=== PATIENT | female | born 1995 ===

== ENCOUNTER 2018-02-01 17:25 | Inpatient (IN) ==
[2018-02-01] MEDS ORDERED: IOPAMIDOL 100 ML BOTTLE IV ONE (17:26)
[2018-02-01] MEDS ORDERED: KETOROLAC 30 MG/ML VIAL IV ONE (17:47)
[2018-02-01] MEDS ORDERED: 0.9 % SODIUM CHLORIDE 1,000 ML IV ONE (17:47)
[2018-02-01] MEDS ORDERED: ONDANSETRON 4 MG/2 ML VIAL IV ONE ×2 (17:47→21:50)
[2018-02-01] MEDS ORDERED: 0.9 % SODIUM CHLORIDE 2,000 ML IV ONE (18:07)
[2018-02-01] MEDS ORDERED: PANTOPRAZOLE 40 MG VIAL IV ONE (18:07)
[2018-02-01] MEDS ORDERED: traMADol 50 MG TABLET PO ONE (18:34)
[2018-02-01 19:12] LABS: Basophils # (Auto) 0 K/mcL (0.0-0.3); Basophils % (Auto) 0 % (0.0-2.0); Eosinophils # (Auto) 0 K/mcL (0.0-0.7); Eosinophils % (Auto) 0 % (0.0-7.0); Granulocytes % (Auto) 90.9 % (38.0-78.0); Lymphocytes # (Auto) 0.8 K/mcL (1.5-4.8); Lymphocytes % (Auto) 7.5 % (15.5-49.0); Mean Corpuscular HGB Conc 33.7 g/dL (31.0-36.0); Mean Corpuscular Hemoglobin 30.3 pg (26.0-34.0); Monocytes # (Auto) 0.2 K/mcL (0.1-0.9); Monocytes % (Auto) 1.6 % (1.0-12.0); Platelet Count 373 K/mcL (140-440); Red Cell Distribution Width 12.2 % (11.5-14.5)
[2018-02-01 19:29] LABS: ALT/SGPT 38 U/l (0-40); Albumin 4.7 gm/dL (3.2-5.2); Albumin/Globulin Ratio 1.4 (1.0-2.3); Alkaline Phosphatase 78 U/L (39-117); Amylase 17 U/L (28-100); Blood Urea Nitrogen 6 mg/dl (6-20); Lipase 13 U/L (7-60)
--- NOTE | 2018-02-01 19:53 | Emergency Department Note ---
Abdominal Pain HPI - General Chief Complaint: Abdominal Pain Stated Complaint: Back/abd pain Time Seen by Provider: 02/01/18 17:46 Source: patient, family Mode of arrival: ambulatory Limitations: no limitations - History of Present Illness HPI Narrative: 22-year-old female comes in for low back pain nausea and vomiting that started this morning. Unable to hold anything down. She did start her menses 6 days ago and is on the tail end of that but she continues to bleed a little bit per vagina. She is not taking any medicines. She is unable to sleep secondary to the pain. Having chills decreased urine but no diarrhea or shortness of breath . - Related Data Home Medications Medication Instructions Recorded Confirmed No Known Home Meds 02/01/18 02/01/18 Allergies Allergy/AdvReac Type Severity Reaction Status Date / Time No Known Drug Allergies Allergy Verified 02/01/18 17:26 Review of Systems All systems ED: reviewed and negative except as stated. Abdominal Pain PMH - Past Medical History Attestation: Yes: The following information was validated with the patient. Medical history: Reports: no medical history Surgical history ED: Reports: no surgical history - Social History Smoking status: Never smoker Physical Exam Distraught anxious female tearful over her back pain. Normocephalic atraumatic. Conjunctive are clear sclerae nonicteric. No nasal discharge or congestion. Oropharynx pink and moist. Neck is supple without lymphadenopathy or thyromegaly. Heart is regular rate and rhythm no murmur appreciated. Lungs are clear to auscultation bilaterally without wheezes rales rhonchi or respiratory distress. Abdomen mildly distended with diffuse gross tenderness along with bilateral flank tenderness. Worse with sitting up. No pedal edema. +2 radial pulse. Alert and oriented Limitations: no limitations Course Vital Signs Temperature 96.8 F L 02/01/18 17:26 Pulse Rate 138 H 02/01/18 17:26 Respiratory Rate 20 02/01/18 17:26 Blood Pressure 150/91 02/01/18 17:26 Pulse Oximetry (%) 98 02/01/18 17:26 Temperature 96.8 F L 02/01/18 17:26 Pulse Rate 159 H 02/01/18 20:51 Respiratory Rate 16 02/01/18 20:15 Blood Pressure 135/100 02/01/18 20:51 Pulse Oximetry (%) 95 02/01/18 20:51 Abdominal Pain - Lab Data Lab results reviewed: Yes I reviewed the patient's lab results. Result diagrams: 02/01/18 18:25 02/01/18 18:25 Lab Results 02/01/18 02/01/18 02/01/18 Range/Units 18:25 18:25 18:25 WBC 10.2 (4.5-11.0) K/mcL RBC 4.80 (4.00-5.20) M/mcL Hgb 14.6 (12.0-15.0) g/dL Hct 43.2 (36.0-48.0) % POC Hct 44.0 (36.0-48.0) % MCV 90.0 (80.0-100.0) fL MCH 30.3 (26.0-34.0) pg MCHC 33.7 (31.0-36.0) g/dL RDW 12.2 (11.5-14.5) % Plt Count 373 (140-440) K/mcL MPV 9.3 (7.4-10.4) fL Gran % 90.9 H (38.0-78.0) % Lymph % (Auto) 7.5 L (15.5-49.0) % [place] % (Auto) 1.6 (1.0-12.0) % Eos % (Auto) 0 (0.0-7.0) % Baso % (Auto) 0 (0.0-2.0) % Gran # 9.3 H (1.8-8.0) K/mcL Lymph # (Auto) 0.8 L (1.5-4.8) K/mcL [place] # (Auto) 0.2 (0.1-0.9) K/mcL Eos # (Auto) 0 (0.0-0.7) K/mcL Baso # (Auto) 0 (0.0-0.3) K/mcL VBG Lactic Acid 2.3 H (0.5-2.2) mmol/L POC Sodium 140 (133-145) mmol/L Sodium 137 (133-145) mmol/L POC Potassium 3.8 (3.3-5.1) mmol/L Potassium 3.9 (3.3-5.1) mmol/L POC Chloride 103 (96-108) mmol/L Chloride 101 (96-108) mmol/L Carbon Dioxide 20 L (22-30) mmol/L POC Total CO2 22 (22-30) mmol/L Anion Gap 16.0 (8-16) POC BUN 5 L (6-20) mg/dl BUN 6 (6-20) mg/dl Creatinine 0.6 (0.6-1.1) mg/dl POC Creatinine 0.5 L (0.6-1.1) mg/dl GFR Calculation 130 Glucose 151 H (70-105) mg/dL POC Glucose 152 H (70-105) mg/dL Calcium 9.3 (8.6-10.4) mg/dl POC WB Ioniz Calcium 1.16 (1.16-1.32) mmol/L Total Bilirubin 0.6 (0.0-1.0) mg/dL AST 21 (0-37) U/l ALT 38 (0-40) U/l Alkaline Phosphatase 78 (39-117) U/L Total Protein 8.0 (5.9-8.4) gm/dL Albumin 4.7 (3.2-5.2) gm/dL Globulin 3.3 (2.2-3.7) gm/dL Albumin/Globulin Ratio 1.4 (1.0-2.3) Amylase 17 L (28-100) U/L Lipase 13 (7-60) U/L Urinalysis [id number] dipstick shows large amount of blood specific gravity 1.030- hCG - Radiology Data Radiology results reviewed: Yes I reviewed the patient's radiology results. 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 with associated gigantic cystic structures taking up most of her abdominal cavity pushing on the other structures Disposition Pt seen by CLINICAL DATA PROGRAMMER/PA only: No Clinical Impression: Ovarian neoplasm, Dehydration Ovarian cyst Qualifiers: Laterality: left Qualified Code(s): N83.202 - Unspecified ovarian cyst, left side Nausea and vomiting Qualifiers: Vomiting type: unspecified Vomiting Intractability: non-intractable Qualified Code(s): R11.2 - Nausea with vomiting, unspecified Summary: Initially treated with Toradol IV fluids and Zofran but this was an inadequate for pain control so we gave her a little bit of tramadol. The tramadol did not help either. So we gave her IV morphine which did provide some relief. Workup was ordered with laboratory as well as CT scan of the abdomen and pelvis CT scan of the abdomen pelvis showed ovarian cyst and neoplasm concerning for malignancy-I discussed this with Dr. Giovany Maldonado radiologist as well as Dr. Hung Meadows HISTOLOGY SUPERVISOR. Dr. Meadows will come in to see the patient She continued to have worsening pain so we gave her Dilaudid Dr. Meadows will take the patient back to the operating room, decide disposition from there depending on what they find in surgery. She will be consented for abdominal mass removal Disposition: Xfer As Outpt/Obs ([facility]) Condition: Serious Referrals: No,PCP [Primary Care Provider] -
[2018-02-01] MEDS ORDERED: HYDROmorphone 2 MG/ML VIAL IV PRN ×2 (20:19→23:09)
[2018-02-01] MEDS ORDERED: IPRATROPIUM/ALBUTEROL 3 ML AMPUL.NEB NEB ONE ×2 (21:43→21:47)
[2018-02-01] MEDS ORDERED: DEXAMETHASONE 10 MG/ML VIAL IV ONE (21:50)
[2018-02-01] MEDS ORDERED: PHENYLEPHRINE 10 MG/ML VIAL IV ONE (21:50)
[2018-02-01] MEDS ORDERED: PROPOFOL 200 MG/20 ML VIAL IV ONE (21:50)
[2018-02-01] MEDS ORDERED: ROCURONIUM 10 MG/ML ML IV ONE (21:50)
[2018-02-01] MEDS ORDERED: MIDAZOLAM 5 MG/5 ML VIAL IV ONE (21:50)
[2018-02-01] MEDS ORDERED: GLYCOPYRROLATE 0.2 MG/ML VIAL IV ONE (21:50)
[2018-02-01] MEDS ORDERED: SUCCINYLCHOLINE 20 MG/ML ML IV ONE (21:50)
[2018-02-01] MEDS ORDERED: fentaNYL 250 MCG/5 ML VIAL IV ONE (21:50)
[2018-02-01] MEDS ORDERED: LIDOCAINE HCL/PF 100 MG/5 ML SYRINGE IV ONE (21:50)
[2018-02-01] MEDS ORDERED: NEOSTIGMINE 1 MG/ML VIAL IV ONE (21:50)
[2018-02-01] MEDS ORDERED: BUPIVACAINE 0.25% 50 ML VIAL IJ ONE (22:00)
[2018-02-01] MEDS ORDERED: METHOCARBAMOL 1,000 MG/10 ML VIAL IV PRN (23:09)
[2018-02-01] MEDS ORDERED: PROMETHAZINE 25 MG/ML VIAL IV PRN (23:09)
[2018-02-01] MEDS ORDERED: FLUMAZENIL 0.1 MG/ML ML IV PRN (23:09)
[2018-02-01] MEDS ORDERED: PROMETHAZINE 25 MG/ML VIAL IM PRN (23:09)
[2018-02-01] MEDS ORDERED: diphenhydrAMINE 50 MG/ML VIAL IV PRN (23:09)
[2018-02-01] MEDS ORDERED: ONDANSETRON 4 MG/2 ML VIAL IV PRN (23:09)
[2018-02-01] MEDS ORDERED: MEPERIDINE 50 MG/ML INJECTION IM PRN (23:09)
[2018-02-01] MEDS ORDERED: fentaNYL 100 MCG/2 ML VIAL IV PRN (23:09)
[2018-02-01] MEDS ORDERED: METOPROLOL TARTRATE 5 MG/5 ML VIAL IV PRN (23:09)
[2018-02-01] MEDS ORDERED: NALOXONE HCL 0.4 MG/ML VIAL IV PRN (23:09)
[2018-02-01] MEDS ORDERED: IPRATROPIUM/ALBUTEROL 3 ML AMPUL.NEB NEB PRN (23:09)
[2018-02-01] MEDS ORDERED: ATROPINE SULFATE 0.4 MG/ML VIAL IV PRN (23:09)
[2018-02-01] MEDS ORDERED: ACETAMINOPHEN 1,000 MG/100 ML BOTTLE IV ONE (23:09)
[2018-02-01] MEDS ORDERED: ePHEDrine 50 MG/ML AMPUL IV PRN (23:09)
[2018-02-01] MEDS ORDERED: LACTATED RINGERS 1,000 ML IV SCH (23:15)
[2018-02-02] MEDS ORDERED: HYDROCODONE/APAP 7.5/325MG TABLET PO PRN (01:16)
[2018-02-02] MEDS ORDERED: fentaNYL 100 MCG/2 ML VIAL IV PRN ×2 (01:17→02:37)
[2018-02-02] MEDS: MEPERIDINE 25 MG/ML SYRINGE IV PRN ×2 (01:50→02:01)
[2018-02-02] MEDS ORDERED: MEPERIDINE 50 MG/ML INJECTION ONE (01:56)
[2018-02-02] MEDS: LACTATED RINGERS 1,000 ML IV SCH ×3 (02:15→17:37)
[2018-02-02] MEDS ORDERED: ONDANSETRON 4 MG/2 ML VIAL IV PRN (02:37)
[2018-02-02] MEDS: HYDROCODONE/APAP 7.5/325MG TABLET PO PRN ×5 (03:14→21:21)
[2018-02-02] MEDS ORDERED: HYDROCODONE/APAP 7.5/325MG TABLET PO ONE (03:21)
--- NOTE | 2018-02-02 07:55 | History and Physical Report ---
DATE OF ADMISSION: 02/01/2018 HISTORY OF PRESENT ILLNESS: The patient is a 22-year-old female who has had about a 12-hour history of severe abdominal and back pain. The patient was at the end of her menses and reported that she has been having increased pain and discomfort. The patient currently rates her pain as a 9; however, it started in the day as about 2 or 3. She has not noted any abdominal symptoms. She has no vaginal discharge. She has no GI or bowel issues. The pain is very sharp and got very intense. It is mainly on the left side and extends into her lower back. The patient denies any bloating. She was seen in the emergency room and assessed. A CT scan was done, and the patient was found to have a large cystic mass with about a 5 cm solid component which is about the size of a basketball. The patient has a small amount of ascites noted on the CT scan. The patient has never been sexually active and has never been . She reports her periods have always been regular and normal and while heavy at the beginning have decreased to normal size. She is at the very end of her menstrual cycle. 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 PAST MEDICAL HISTORY: 1. Asthma, which is not significantly a problem for her now. She hardly has any problems with it. 2. Anxiety, which is an undiagnosed. PAST SURGICAL HISTORY: Negative. ALLERGIES: NONE. MEDICATIONS: She takes an inhaler, which she does not know, but she rarely takes it. SOCIAL HISTORY: She denies smoking, drugs, or alcohol. FAMILY HISTORY: Mom has type 2 diabetes and hypertension. Her father has type 2 diabetes. Her grandmother has congestive heart failure. REVIEW OF SYSTEMS: She is having abdominal pain, vaginal bleeding. She is having back pain, some nausea and vomiting. All other systems are reviewed and are otherwise negative. PHYSICAL EXAMINATION: VITAL SIGNS: Blood pressure of 150/91, pulse 138, respiratory rate of 20, temperature 96.8. She is saturating at 98%. GENERAL: She is an obese, well-developed, well-nourished white female in mild discomfort. HEENT: Pupils are equal, round, and reactive to light. Extraocular muscles are intact. Mouth shows no erythema, no exudate. Normal dentition. Tongue is erythematous and moist. NECK: Shows no lymphadenopathy. No thyromegaly. Trachea is midline. BACK: Shows some lower back discomfort, but no costovertebral angle tenderness. CHEST: Lungs are clear to auscultation. No wheeze, rales, or rhonchi. HEART: Slightly tachycardic, but regular rhythm. No murmurs, gallops, or rubs. ABDOMEN: Somewhat distended with a mass noted throughout her abdomen. She is obese. No peritoneal signs are noted on exam as she does not have rebound or guarding. EXTREMITIES: Show no clubbing, cyanosis, or edema. GENITOURINARY: External genitalia show no lesions. Hymen is intact. Vagina shows minimal blood. Cervix shows no gross lesions. No cervical motion tenderness. Uterus difficult to palpate due to a large abdominal pelvic mass that extends upwards through her abdomen. Some tenderness is noted throughout on exam, but greatest on the left side. LABORATORY DATA: Show a white blood cell count of 10.2, H and H 14.6 and 43.2, platelets are 373. Urinalysis just shows some blood. The hCG is negative. Sodium 137, potassium 3.9, chloride 101, CO2 is 22, BUN 6, creatinine 0.6, calcium 9.3. CT scan as mentioned shows a large abdominal pelvic mass with mostly fluid filled. ASSESSMENT AND PLAN: A 22-year-old female with acute pelvic pain and a large abdominal pelvic mass. This is likely a large ovarian cyst of which side I cannot specifically determine by her CT scan. By exam, it might be left-sided. The patient possibly has a torsion today. I have recommended a laparoscopy, possible laparotomy. The patient understands the risks and potential that this could be a tumor or even malignant. I have discussed options with her, and we will try to perform a conservative procedure to help with the discomfort and to decompress this and remove the affected ovary. Risks versus benefits discussed, understood and accepted which include, but are not limited to bleeding, infection, damage to bowel or bladder scar tissue, wound infections. Transfusion risks include HIV, hepatitis, anesthesia problems, blood clots that can go from the leg to the lungs, may need to make any incision necessary potential for surgery down the road. All questions answered. Alternatives discussed, and the patient wished to proceed with the procedure as recommended. BRIDGER:anila Job ID: [id number] Doc ID: [id number] Hung Meadows MD
--- NOTE | 2018-02-02 09:47 | Cat Scan Report ---
CLINICAL INFORMATION: Abdominal pain radiating to the back and unable to urinate COMPARISON: None. TECHNIQUE: Following injection of intravenous contrast the patient was scanned during the portal venous phase from the diaphragm through the symphysis pubis. Sagittal and coronal reformats were created.. The radiation exposure was limited using dose reduction technology. FINDINGS: The liver and spleen are normal in size and homogeneous. Gallbladder and bile ducts are normal. There is no evidence of mass or inflammation in the pancreas. The adrenals are normal. Kidneys are normal in size shape and contour and there is no hydronephrosis or evidence renal mass or inflammation. The stomach contains a normal amount of fluid. Urinary bladder is largely decompressed and appears normal. There is a giant well-circumscribed cyst occupying most of the abdomen and pelvis. It contains a septation. It measures 27 x 40 x 40 cm. There is a solid components along the inferior border. This connects with the broad ligament. On the coronal reformatted views there is a swirling pattern where the broad ligament attaches with the lesion. Normal left ovary is not visualized. Uterus and right ovary appear normal. There is a trace amount of ascites deep in the pelvis. IMPRESSION: Giant cystic mass arising from the left ovary. 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 There may be torsion of the vascular pedicle arising from the broad ligament. A bland ovarian torsion with secondary cyst formation is less likely. Dr. Hinson was called with results Interpreted and Authenticated by: Giovany Maldonado 02/02/18
--- NOTE | 2018-02-02 10:41 | XRay Report ---
HISTORY: Instrument count following resection an ovarian cyst FINDINGS: There are no retained surgical instruments within the abdomen or pelvis. There is a row surgical skin isela overlying the pubic bones. A large amount of intraperitoneal air is present following the recent surgery. The bowel pattern is normal. IMPRESSION: No retained surgical instruments Interpreted and Authenticated by: Giovany Maldonado 02/02/18
[2018-02-02 10:44] LABS: Basophils # (Auto) 0 K/mcL (0.0-0.3); Basophils % (Auto) 0.1 % (0.0-2.0); Eosinophils # (Auto) 0 K/mcL (0.0-0.7); Eosinophils % (Auto) 0 % (0.0-7.0); Lymphocytes # (Auto) 0.9 K/mcL (1.5-4.8); Lymphocytes % (Auto) 8.2 % (15.5-49.0); Mean Cell Volume 90.2 fL (80.0-100.0); Mean Corpuscular HGB Conc 34.7 g/dL (31.0-36.0); Mean Corpuscular Hemoglobin 31.3 pg (26.0-34.0); Monocytes # (Auto) 0.4 K/mcL (0.1-0.9); Monocytes % (Auto) 3.7 % (1.0-12.0); Platelet Count 309 K/mcL (140-440); RBC 3.66 M/mcL (4.00-5.20); Red Cell Distribution Width 12.3 % (11.5-14.5)
--- NOTE | 2018-02-02 11:24 | History and Physical Report ---
DATE OF ADMISSION: 02/02/2018 HISTORY OF PRESENT ILLNESS: The patient is a 22-year-old female who was admitted and underwent a laparoscopy and laparotomy with left salpingo-oophorectomy for greater than 25 cm ovarian cyst. The patient had an ovarian torsion. The ovary was removed at this time. The patient had an enlarged abdomen. This was removed. This morning, she was having abdominal pain. Her back pain and left-sided pain has resolved, but her belly hurts. She has been up and ambulating. The patient is feeling somewhat better, but still eating very slowly. PHYSICAL EXAMINATION: GENERAL: The patient is looking very good. VITAL SIGNS: Blood pressure 113/66, pulse of 85, respiratory rate 18. She is saturating anywhere from 94 to 96%. ABDOMEN: Soft, nondistended. Her incisions are clean, dry and intact. No erythema or exudate. EXTREMITIES: Show no tenderness. ASSESSMENT AND PLAN: A 22-year-old female who presents with ovarian torsion. This was relieved surgically. She is improved; however, due to a small laparotomy portion of the procedure, the patient is still slow in eating and having some abdominal pain. We will continue pain medication. We will remove her Nses. The patient is to get up and move around and ambulate somewhat today. We will advance diet as necessary. We will check a CBC and a CMP. BRIDGER:elia Job ID: [id number] Doc ID: [id number] Hung Meadows MD
[2018-02-02] MEDS ORDERED: BUPIVACAINE 0.25% 50 ML VIAL IJ ONE (22:00)
[2018-02-03] MEDS: HYDROCODONE/APAP 7.5/325MG TABLET PO PRN ×2 (01:42→10:23)
[2018-02-03] MEDS: LACTATED RINGERS 1,000 ML IV SCH ×2 (01:42→11:48)
--- NOTE | 2018-02-03 07:33 | Operative Note ---
DATE OF OPERATION: 02/02/2018 PREOPERATIVE DIAGNOSIS: Acute pelvic pain, abdominal pain, large pelvic mass, torsed tube and ovary. POSTOPERATIVE DIAGNOSIS: Acute pelvic pain, abdominal pain, large pelvic mass, torsed tube and ovary. SURGEON: Hung Meadows MD ANESTHESIA: General. ESTIMATED BLOOD LOSS: 200 mL PROCEDURES: 1. Laparoscopy. 2. Laparotomy. 3. Resection of pelvic mass. 4. Left salpingo-oophorectomy. 5. Right partial salpingotomy. FINDINGS: The patient had a large pelvic mass which was greater than 25 cm and filled up her entire abdominal cavity. It was torsed on the left tube and ovary. It was filled with fluid in the left tube and ovary, had torsed off the pedicle. Normal uterus. A 1 to 2 cm right fallopian tube cyst. SPECIMEN: Left tube and ovary. COMPLICATIONS: None. DESCRIPTION OF PROCEDURE: The patient was taken to the operating room and placed in the dorsal lithotomy position and prepped and draped in the normal sterile fashion for an abdominal procedure. After adequate anesthesia was administered, a Humouno uterine manipulator was placed on the anterior lip of the cervix. A Ness catheter was inserted into the bladder. Attention was turned to the abdomen. The patient was noted to have a large cystic pelvic mass. Local anesthesia was placed at the infraumbilical site and right and left lower quadrants. An incision was made and the 5 mm trocar was placed under visualization of the laparoscope. I was able to identify that I was in the peritoneal cavity. Subsequently, I was able to place the trocars at the suprapubic region and in the right and left lower quadrants. These were all done under visualization of the laparoscope. The patient had a very large pelvic mass, which was cystic and seemed to be torsed. It had a dark hue color over the entire ovary consistent with a low blood flow. I used a suction to poke a hole in the ovarian cyst and sucked out a large amount of fluid. Initially we sucked out about 900 mL of fluid. There seemed to be a bilobed component to this and had to poke a hole through a second section and then finish sucking out this section. A total of 1700 mL of fluid was clear straw-colored fluid was removed from this ovary. This decompressed the ovary substantially. The patient had a pedicle that was torsed off the left ovary. I was able to identify the uterus at this point which was normal. The right tube and ovary were identified. The right ovary was normal, but the left tube had about a 1-2 cm straw colored cyst. I opened this up with scissors and cautery. Straw-colored fluid came out. It should be noted on the left side I had to cauterize and cut across the pedicle. This mass was huge and it took quite a bit of time to identify the pedicle and cut across it with a LigaSure. Bipolar cautery was used taking care not to damage any other organs. Once I was able to free this up, the decision was made that the mass was too big to get through the laparoscopic incisions. I had to make a mini laparotomy, which was performed. It was about a 5 to 6 cm incision that was made and I dissected down through the subcutaneous tissue and fat to the fascia. The fascia was opened up and I dissected down through the rectus muscles and peritoneum until the peritoneum was entered. At this point, it took quite a bit of time to remove this mass from the incision. The mass was extremely large. This took likely considerable time to remove from the abdomen but once performed, we suctioned the pelvis of the small amount of fluid. The rectus muscles and peritoneum were closed with 2-0 Vicryl. The fascia was closed in a running fashion with 0 Vicryl suture. The subq was closed in a running fashion with 3-0 Vicryl. The skin was closed with isela. I identified in the pelvis laparoscopically that all pedicles were hemostatic at this point. The CO2 was allowed out. No damage to any organs was noted prior to doing this. The incisions were closed with 4-0 Vicryl, Steri-Strips and Band-Aids. An x-ray showed no lap tapes or sponges noted within the abdomen. All instruments were removed from the vagina. The patient tolerated this procedure well. All instrument, needle, and sponge counts were correct at the end of the procedure. The patient was taken from the operating room to the recovery room in stable condition. Please note that this procedure was 3 hours in length. ABW:nae Job ID: [id number] Doc ID: [id number] Hung LOPEZ
--- NOTE | 2018-02-04 11:18 | Discharge Summary ---
DATE OF ADMISSION: 02/02/2018 DATE OF DISCHARGE: 02/03/2018 ADMITTING DIAGNOSES: Pelvic pain, abdominal pain, greater than 25 cm abdominal pelvic mass left ovarian cyst. DISCHARGE DIAGNOSES: Pelvic pain, abdominal pain, greater than 25 centimeters abdominal pelvic mass left ovarian cyst, left ovarian torsion. PROCEDURE: 1. Laparoscopy. 2. Mini laparotomy. 3. Left salpingo-oophorectomy which involved resection and drainage of a massive ovarian cyst. HOSPITAL COURSE: The patient is a 22-year-old female admitted for surgery on the evening of 02/02/2018. The patient came to the emergency room with severe abdominal and pelvic pain. She had pain that was excruciating, radiating into her back. CT scan showed a massive abdominal cyst which was fluid filled. The patient subsequently was taken to the OR. Her left tube and ovary were found to be massive in size with fluid which filled her entire abdominal cavity. There was an ovarian torsion noted of the left pedicle. I drained 17 liters of straw-colored fluid off of this ovarian cyst. Subsequently, a left salpingo-oophorectomy was performed. A mini laparotomy had to be performed to remove the ovary. The patient tolerated this well. She was taken back to her room in good condition. Since then, the patient has had normal vital signs. Her pulse which was 130s in the OR has dropped into the 80s. She has been ambulating, tolerating p.o. and voiding without difficulty. Her incisions are clean, dry, and intact. The extremities show no tenderness. The patient is to be discharged home today. She is to follow up in the office next week for staple removal. She was told to call for any pain, temperature or serious fever. She is being discharged with a prescription for hydrocodone. ABJadiel:boo Job ID: [id number] Doc ID: [id number] Hung LOPEZ
--- NOTE | 2018-02-04 12:36 | Surgical Pathology Report ---
HISTOLOGY SPECIMEN MICROSCOPIC DIAGNOSIS OVARY, FALLOPIAN TUBE, LEFT SALPINGO-OOPHORECTOMY: -- OVARY: - INFARCTED MULTILOCULAR CYSTIC OVARIAN MASS WITH HEMORRHAGE, FOCAL PAPILLARY ARCHITECTURE, NECROSIS, AND SCANT VIABLE CUBOIDAL/COLUMNAR EPITHELIUM, CONSISTENT WITH TORSED CYSTADENOFIBROMA. - NO MALIGNANT FEATURES IDENTIFIED. -- FALLOPIAN TUBE: MUCOSAL INFARCTION AND HEMORRHAGE, CONSISTENT WITH TORSION. (ACP:djf) CLINICAL HISTORY Left ovarian mass. GROSS DESCRIPTION Received in formalin is a left ovary and fallopian tube, post fixation weight 1,658 grams and measures 24.5 x 18.5 x 9 cm. The surface is roberts-purple to brown, smooth and intact. No fallopian tube is grossly identified; however, there are two firmer cylinder like areas near the margin measuring 5.0 cm and 11.5 cm in length and up to 0.6 cm in diameter. The wall is up to 2.4 cm thick. The resection margin is inked black. The specimen is opened to reveal a septated cavity divided into two areas. The cavity lining is red-black, consistent with hemorrhage. There are a few raised rough surfaced areas measuring from 0.8 to 2.0 cm in greatest dimension. No excrescences or masses are identified. The specimen is placed in formalin for further fixation, prior to sampling. Duck Operator sections are submitted in thirteen cassettes: A1 - margin; A2 - tubal areas near margin; A3-A4 - livestock sales representative sections of raised rough surfaced areas of cavity lining; A5-A13 - random sections. (EBD:sln) Electronically Signed by: Peter Maldonado M.D.
== END 2018-02-03 11:27 | disposition home or self-care (01) | DRG 742 ==
LOC: ED 17:25 → SSSU 21:35 → MEDSUR 02-02 02:11
PROVIDERS: ADMIT Obstetrics & Gynecology; ATTEND Obstetrics & Gynecology
CPT/HCPCS: 80047; 85014; J0131; J0330; J1100; J1170; J1885; J2001; J2175; J2250; J2270; J2370; J2405; J2710; J3010; J7030; J7120; J7620; J7620-GY; Q9967